=== PATIENT | female | born 1980 | race Caucasian/White ===

== ENCOUNTER 2016-12-08 12:17 | Emergency (ER) | payer OTHER ==
[2016-12-08 16:44] VITALS: BP 130/75
== END 2016-12-08 16:44 | disposition home or self-care (01) ==
LOC: ED 12:17
DX: J20.9 Acute bronchitis, unspecified (principal); J45.909 Unspecified asthma, uncomplicated; E03.9 Hypothyroidism, unspecified; H40.9 Unspecified glaucoma; E66.01 Morbid (severe) obesity due to excess calories; E78.5 Hyperlipidemia, unspecified; I10 Essential (primary) hypertension; Z98.890 Other specified postprocedural states
CPT/HCPCS: Q0092

== ENCOUNTER 2019-02-23 13:03 | Emergency (ER) | payer OTHER ==
[~2019-02-23] VITALS: Ht 152.4 cm; Wt 140.2 kg
[2019-02-23 13:14] VITALS: Ht 152.4 cm; Wt 140.2 kg
[2019-02-23 15:50] VITALS: BP 131/67
== END 2019-02-23 15:50 | disposition home or self-care (01) ==
LOC: ED 13:03
DX: S86.812A Strain of other muscle(s) and tendon(s) at lower leg level, left leg, initial encounter (principal); S46.912A Strain of unspecified muscle, fascia and tendon at shoulder and upper arm level, left arm, initial encounter; S46.911A Strain of unspecified muscle, fascia and tendon at shoulder and upper arm level, right arm, initial encounter; J45.909 Unspecified asthma, uncomplicated; G89.29 Other chronic pain; M54.9 Dorsalgia, unspecified; Z88.6 Allergy status to analgesic agent; Z88.1 Allergy status to other antibiotic agents; Z88.5 Allergy status to narcotic agent; X58.XXXA Exposure to other specified factors, initial encounter; Y93.89 Activity, other specified; Y92.89 Other specified places as the place of occurrence of the external cause; Y99.8 Other external cause status

== ENCOUNTER 2020-04-13 15:05 | Emergency (ER) | payer OTHER, SELFPAY ==
[~2020-04-13] VITALS: Ht 162.6 cm; Wt 147.4 kg
[2020-04-13 15:08] VITALS: Ht 162.6 cm; Wt 147.4 kg
[2020-04-13 17:11] LABS: CALCIUM 9.4 mg/dL (8.5-10.1); CARBON DIOXIDE 29.8 mmol/L (21-32); CHLORIDE SERUM 102 mmol/L (98-107); CREATININE SERUM 0.6 mg/dL (0.6-1.0); GFR1 > 60 mL/min; GLUCOSE SERUM 88 mg/dL (74-106); POTASSIUM SERUM 4.4 mmol/L (3.5-5.1); SODIUM SERUM 139 mmol/L (136-145)
[2020-04-13 17:14] LABS: BASOPHIL % 0.2 % (0-2); PLATELET COUNT 379 x10^3mcL (130-400)
[2020-04-13 17:19] LABS: ALBUMIN 3.8 g/dL (3.4-5.0); ALKALINE PHOSPHATASE 76 U/L (46-116); ALT/SGPT 25 U/L (14-59); AST/SGOT 19 U/L (15-37); BILIRUBIN TOTAL 0.7 mg/dL (0.20-1.00); TOTAL PROTEIN, SERUM 7.9 g/dL (6.4-8.2)
[2020-04-13 18:08] VITALS: BP 129/70
== END 2020-04-13 18:08 | disposition home or self-care (01) ==
LOC: ED 15:05
PROVIDERS: Student in an Organized Health Care Education/Training Program
DX: N64.4 Mastodynia (principal); R07.89 Other chest pain; J45.909 Unspecified asthma, uncomplicated; G89.29 Other chronic pain; M54.9 Dorsalgia, unspecified; Z88.6 Allergy status to analgesic agent; Z91.041 Radiographic dye allergy status
CPT/HCPCS: Q0092

== ENCOUNTER 2020-05-09 13:11 | Emergency (ER) | payer OTHER ==
[~2020-05-09] VITALS: Ht 152.4 cm; Wt 144.0 kg
[2020-05-09 18:26] VITALS: BP 120/63
== END 2020-05-09 18:27 | disposition home or self-care (01) ==
LOC: ED 13:11
DX: M79.662 Pain in left lower leg (principal); J45.909 Unspecified asthma, uncomplicated; G89.29 Other chronic pain; Z90.49 Acquired absence of other specified parts of digestive tract; Z88.6 Allergy status to analgesic agent; Z88.8 Allergy status to other drugs, medicaments and biological substances